=== PATIENT | female | born 1965 | race Asian ===

== ENCOUNTER → 2023-08-24 17:31 | Outpatient (REF) | payer BC, SELFPAY | LOC: MRI 3T 17:31 | PROVIDERS: ATTENDING PHYSICIAN Nurse Practitioner; FAMILY PHYSICIAN Family Medicine; OTHER PHYSICIAN Plastic Surgery; REFERRING PHYSICIAN Plastic Surgery | DX: Z90.10 Acquired absence of unspecified breast and nipple (principal) | CPT/HCPCS: 77049; A9585 ==

== ENCOUNTER → 2023-12-16 14:54 | Outpatient (REF) | payer BC, SELFPAY | LOC: HWRAD 14:54 | PROVIDERS: ATTENDING PHYSICIAN Internal Medicine | DX: Z13.820 Encounter for screening for osteoporosis (principal); Z78.0 Asymptomatic menopausal state | CPT/HCPCS: 77080 ==

== ENCOUNTER → 2023-12-29 09:45 | Outpatient (REF) | payer BC, SELFPAY | LOC: RAD 09:45 | PROVIDERS: ATTENDING PHYSICIAN Internal Medicine | DX: M81.0 Age-related osteoporosis without current pathological fracture (principal); R07.81 Pleurodynia | CPT/HCPCS: 71100; 72072; 72100 ==